=== PATIENT | male | born 1940 | race Caucasian/White ===

== ENCOUNTER 2020-11-20 09:27 | Emergency (ER) | payer OTHER ==
[~2020-11-20] VITALS: Ht 170.2 cm; Wt 68.5 kg
[~2020-11-20 09:27] MED LIST: LISINOPRIL10 MG PO
[2020-11-20] MEDS ORDERED: IBUPROFEN 600 MG TAB PO STA (09:51)
[2020-11-20] MEDS ORDERED: ULTRAM 50MG50 MG PO (12:11)
== END 2020-11-20 12:22 | disposition home or self-care (01) ==
LOC: ER 10:29
DX: M25.561 Pain in right knee (principal); W01.0XXA Fall on same level from slipping, tripping and stumbling without subsequent striking against object, initial encounter; Y93.01 Activity, walking, marching and hiking; I10 Essential (primary) hypertension; I25.10 Atherosclerotic heart disease of native coronary artery without angina pectoris; Z95.1 Presence of aortocoronary bypass graft; Z88.0 Allergy status to penicillin
CPT/HCPCS: 99283

== ENCOUNTER 2020-12-01 15:14 | Emergency (ER) | payer OTHER ==
[~2020-12-01] VITALS: Ht 170.2 cm; Wt 68.5 kg
[~2020-12-01 15:14] MED LIST changes: +ULTRAM 50MG50 MG PO
[2020-12-01] MEDS ORDERED: MULTI-VITAMIN1 EACH PO (16:01)
[2020-12-01] MEDS ORDERED: LEVOTHYROXINE100 MC2 (16:01)
[2020-12-01] MEDS ORDERED: GINKGO BILOBA120 MG (16:01)
[2020-12-01] MEDS ORDERED: COQ-10100 MG (16:01)
[2020-12-01] MEDS ORDERED: ASPIRIN EC81 MG PO (16:01)
[2020-12-01] MEDS ORDERED: VITAMIN B-121000 MCG PO (16:01)
[2020-12-01] MEDS ORDERED: APPLE CIDER VI300 MG (16:01)
[2020-12-01] MEDS ORDERED: POTASSIUM CHLO10 ME1 PO (16:01)
[2020-12-01] MEDS ORDERED: ACYCLOVIR200 MG PO (16:01)
[2020-12-01] MEDS ORDERED: MAGOX 400400 MG PO (16:01)
[2020-12-01] MEDS ORDERED: SAW PALMETTO 41 EACH (16:01)
[2020-12-01] MEDS ORDERED: SODIUM CHLORIDE 0.9% 1000ML 1,000 ML IV SCH (16:45)
[2020-12-01] MEDS ORDERED: SODIUM CHLORIDE 0.9% 1000ML 1,000 ML ONE (19:26)
[2020-12-01] MEDS ORDERED: GABAPENTIN100 MG PO (20:56)
[2020-12-01 21:05] VITALS: BP 155/66
== END 2020-12-01 21:05 | disposition home or self-care (01) ==
LOC: FSED 15:42
DX: M79.662 Pain in left lower leg (principal); M79.18 Myalgia, other site; Z91.81 History of falling; R63.0 Anorexia; Z68.23 Body mass index [BMI] 23.0-23.9, adult; B02.9 Zoster without complications; I10 Essential (primary) hypertension; E03.9 Hypothyroidism, unspecified; I25.10 Atherosclerotic heart disease of native coronary artery without angina pectoris; Z95.1 Presence of aortocoronary bypass graft
CPT/HCPCS: 71045; 73700; 93005; 99284; J7030

== ENCOUNTER 2020-12-12 13:39 | Inpatient (IN) | payer OTHER ==
[~2020-12-12] VITALS: Ht 171.4 cm; Wt 63.0 kg
[~2020-12-12 13:39] MED LIST changes: +ACYCLOVIR200 MG PO; +APPLE CIDER VI300 MG; +ASPIRIN EC81 MG PO; +COQ-10100 MG; +GABAPENTIN100 MG PO; +GINKGO BILOBA120 MG; +LEVOTHYROXINE100 MC2; +MAGOX 400400 MG PO; +MULTI-VITAMIN1 EACH PO; +POTASSIUM CHLO10 ME1 PO; +SAW PALMETTO 41 EACH; +VITAMIN B-121000 MCG PO
[2020-12-12] MEDS ORDERED: SODIUM CHLORIDE 0.9% 1000ML 1,000 ML IV SCH (15:45)
[2020-12-12] MEDS ORDERED: ACETAMINOPHEN 325 MG TAB PO PRN (19:45)
[2020-12-12] MEDS ORDERED: TRAMADOL HCL 50 MG TAB PO PRN (19:45)
[2020-12-12] MEDS ORDERED: HYDRALAZINE HCL 20 MG/ML VIAL IV PRN (19:45)
[2020-12-12] MEDS ORDERED: ONDANSETRON HCL INJ 2MG/ML 2ML 2 MG/ML VIAL IV PRN (19:45)
[2020-12-12 20:04] VITALS: BP 142/75
[2020-12-12 20:35] VITALS: BP 142/75
[2020-12-12 20:54] LABS: BASOPHILS # (AUTO) 0.1 (0.0-0.1); BASOPHILS % 0.5 % (0.0-1.0); EOSINOPHILS # (AUTO) 0.2 (0.0-0.4); EOSINOPHILS % 2.1 % (0.0-6.0); HEMATOCRIT 43.7 % (38.2-49.6); HEMOGLOBIN 14.2 g/dL (14.0-18.0); LYMPHOCYTES # (AUTO) 2.3 (1.0-3.2); LYMPHOCYTES % 24.9 % (18.0-39.1); MEAN CORPUSCULAR HEMOGLOBIN 31.3 pg (28-32); MEAN CORPUSCULAR HGB CONC 32.5 g/dL (31-35); MEAN CORPUSCULAR VOLUME 96.5 fL (81-99); MONOCYTES # (AUTO) 0.9 (0.2-0.8); MONOCYTES % 9.6 % (4.4-11.3); NEUTROPHILS # (AUTO) 5.8 (2.1-6.9); NEUTROPHILS % 62.5 % (38.7-80.0); PLATELET COUNT 277 x10e3/uL (140-360); RED BLOOD COUNT 4.53 x10e6/uL (4.3-5.7); RED CELL DISTRIBUTION WIDTH 12.8 % (11.7-14.4)
[2020-12-12 21:05] LABS: INR 1.02; PROTHROMBIN TIME 13.6 seconds (11.9-14.5)
[2020-12-12 21:06] LABS: PARTIAL THROMBOPLASTIN TIME 29.7 seconds (23.8-35.5)
[2020-12-12 21:13] LABS: ANION GAP 16.5 mmol/L (8-16); CALCIUM 9.9 mg/dL (8.4-10.2); CREATININE, SERUM 1.18 mg/dL (0.72-1.25); POTASSIUM 4.5 mmol/L (3.5-5.1)
[2020-12-13] VITALS (8 sets, daily range): BP systolic 110–164; BP diastolic 68–88
[2020-12-13] MEDS: SODIUM CHLORIDE 0.9% 1000ML 1,000 ML IV SCH ×4 (00:13→20:40)
[2020-12-13] MEDS: FAMOTIDINE 20 MG TAB PO SCH ×2 (07:30→16:57)
[2020-12-13] MEDS ORDERED: ACYCLOVIR 200 MG CAP PO SCH (09:00)
[2020-12-13] MEDS: MAGNESIUM OXIDE 400 MG TAB PO SCH ×2 (09:00→16:57)
[2020-12-13] MEDS ORDERED: LISINOPRIL 10 MG TAB PO SCH (09:00)
[2020-12-13] MEDS ORDERED: LIDOCAINE HCL 1% LOCAL INJ 20 ML VIAL ONE (10:14)
[2020-12-13] MEDS ORDERED: LIDOCAINE 1% W/EPINEPHRINE 20 ML VIAL ONE (10:15)
[2020-12-13] MEDS ORDERED: ONDANSETRON HCL INJ 2MG/ML 2ML 2 MG/ML VIAL IV PRN (10:30)
[2020-12-13] MEDS ORDERED: DIPHENHYDRAMINE HCL INJ 50 MG/ML VIAL IV PRN (10:30)
[2020-12-13] MEDS ORDERED: TRAMADOL/APAP 37.5MG-325MG TAB PO PRN (10:30)
[2020-12-13] MEDS: Cefazolin 1 GM in SODIUM CHLORIDE 0.9% 50ML 50 ML IV SCH ×2 (13:29→21:24)
[2020-12-13] MEDS ORDERED: DEXAMETHASONE SOD PHOS INJ 4 MG/ML VIAL ONE (13:45)
[2020-12-13] MEDS ORDERED: ONDANSETRON HCL INJ 2MG/ML 2ML 2 MG/ML VIAL ONE (13:45)
[2020-12-13] MEDS ORDERED: POVIDONE IODINE 0.05% 0.05 % ML PO ONE (13:45)
[2020-12-13] MEDS ORDERED: SEVOFLURANE INHAL SOLN 250 ML PEN BTL ONE (13:45)
[2020-12-13] MEDS ORDERED: LIDOCAINE HCL 2% LOCAL INJ 5 ML SDV VIAL INJ ONE (13:45)
[2020-12-13] MEDS ORDERED: PROPOFOL IV EMULSION 10 MG/ML 20 ML VIAL ONE (13:45)
[2020-12-13] MEDS ORDERED: EPHEDRINE SULFATE INJ 50 MG/ML VIAL ONE (13:45)
[2020-12-13] MEDS ORDERED: PROPRANOLOL HCL40 MG PO (17:00)
[2020-12-14 00:20] VITALS: BP 129/80
[2020-12-14] MEDS ORDERED: ZIPRASIDONE 20 MG VIAL IM ONE (04:15)
[2020-12-14] MEDS ORDERED: ZIPRASIDONE 20 MG VIAL IM STA (04:15)
[2020-12-14] MEDS: SODIUM CHLORIDE 0.9% 1000ML 1,000 ML IV SCH (05:14)
[2020-12-14] MEDS: Cefazolin 1 GM in SODIUM CHLORIDE 0.9% 50ML 50 ML IV SCH (05:14)
[2020-12-14 05:24] LABS: HEMATOCRIT 38.2 % (38.2-49.6); HEMOGLOBIN 12.6 g/dL (14.0-18.0)
[2020-12-14 06:02] VITALS: BP 99/65
[2020-12-14] MEDS ORDERED: RIVAROXABAN 10 MG TABLET PO SCH (08:00)
[2020-12-14 08:06] VITALS: BP 105/64
[2020-12-14] MEDS ORDERED: ONDANSETRON HCL 4 MG ORAL DISINTEGRATING TAB PO PRN (08:45)
[2020-12-14] MEDS ORDERED: ZIPRASIDONE 20 MG VIAL IM PRN (08:45)
[2020-12-14] MEDS ORDERED: PROPRANOLOL HCL 60 MG ER CAP PO SCH (09:00)
[2020-12-14] MEDS ORDERED: SENNOSIDES 8.6 MG TAB PO SCH (09:00)
[2020-12-14] MEDS: FAMOTIDINE 20 MG TAB PO SCH (09:34)
[2020-12-14] MEDS: MAGNESIUM OXIDE 400 MG TAB PO SCH (09:35)
[2020-12-14 12:00] VITALS: BP 109/65
[2020-12-14] MEDS ORDERED: QUETIAPINE FUMARATE 25 MG TAB PO SCH (14:00)
== END 2020-12-14 15:47 | DRG 481 ==
LOC: MED/SURG 13:39
PROVIDERS: ADMIT Internal Medicine; ATTEND Internal Medicine
PROC: 0QS634Z Reposition Right Upper Femur with Internal Fixation Device, Percutaneous Approach (ICD-10-PCS; principal; 2020-12-13 08:30)
DX: S72.001A Fracture of unspecified part of neck of right femur, initial encounter for closed fracture (principal); F23 Brief psychotic disorder; F03.90 Unspecified dementia, unspecified severity, without behavioral disturbance, psychotic disturbance, mood disturbance, and anxiety; Z91.81 History of falling; I10 Essential (primary) hypertension; E03.9 Hypothyroidism, unspecified; I25.10 Atherosclerotic heart disease of native coronary artery without angina pectoris; Z95.1 Presence of aortocoronary bypass graft; E78.5 Hyperlipidemia, unspecified; Z20.822 Contact with and (suspected) exposure to COVID-19; Z88.5 Allergy status to narcotic agent; Z88.0 Allergy status to penicillin
CPT/HCPCS: 36415; 71045; 72170; 76000; 80048; 85014; 85018; 85025; 85610; 85730; 97139; C1713; J0690; J1100; J1200; J2001; J2405; J3486; J7030; J7050; U0002

== ENCOUNTER → 2022-10-01 | Day surgery (SDC) | payer MEDICARE, OTHER ==
[2022-09-30 13:29] LABS: BASOPHILS # (AUTO) 0.1 (0.0-0.1); EOSINOPHILS # (AUTO) 0.3 (0.0-0.4); EOSINOPHILS % 3.1 % (0.0-6.0); HEMATOCRIT 40.8 % (38.2-49.6); HEMOGLOBIN 13.6 g/dL (14.0-18.0); LYMPHOCYTES # (AUTO) 2.2 (1.0-3.2); LYMPHOCYTES % 25.5 % (18.0-39.1); MEAN CORPUSCULAR HEMOGLOBIN 32.2 pg (28-32); MEAN CORPUSCULAR HGB CONC 33.3 g/dL (31-35); MEAN CORPUSCULAR VOLUME 96.5 fL (81-99); MONOCYTES # (AUTO) 0.7 (0.2-0.8); MONOCYTES % 8.7 % (4.4-11.3); NEUTROPHILS # (AUTO) 5.2 (2.1-6.9); NEUTROPHILS % 61.3 % (38.7-80.0); PLATELET COUNT 183 x10e3/uL (140-360); RED BLOOD COUNT 4.23 x10e6/uL (4.3-5.7); RED CELL DISTRIBUTION WIDTH 12.8 % (11.7-14.4)
[~2022-10-01] MED LIST changes: +FENTANYL CITRATE/PF 100MCG/2 ML INJ ONE; +LACTATED RINGER'S 1,000 ML ONE; +MIDAZOLAM HCL 2 MG/2 ML VIAL ONE; +NAMENDA10 MG PO; +OR PHACO EYE KIT ONE; +PREOP PHACO EYE KIT ONE; +PROPRANOLOL HCL40 MG PO
[2022-10-01 09:10] VITALS: BP 160/64; PULSE 58; RESP 16; O2SAT 98
== END | disposition home or self-care (01) ==
LOC: OR 06:54
PROVIDERS: ATTEND Ophthalmology
DX: H25.11 Age-related nuclear cataract, right eye (principal); G47.33 Obstructive sleep apnea (adult) (pediatric); I10 Essential (primary) hypertension; I25.10 Atherosclerotic heart disease of native coronary artery without angina pectoris; E03.9 Hypothyroidism, unspecified; Z88.6 Allergy status to analgesic agent; Z88.0 Allergy status to penicillin; Z01.810 Encounter for preprocedural cardiovascular examination; Z01.812 Encounter for preprocedural laboratory examination; Z79.82 Long term (current) use of aspirin; Z79.899 Other long term (current) drug therapy
CPT/HCPCS: 36415; 66984; 85025; 93005; J2250; J3010; J7121; V2632

== ENCOUNTER 2023-11-12 09:18 | Inpatient (IN) | payer MEDICARE ==
[2023-11-12] VITALS (7 sets, daily range): BP systolic 118–128; BP diastolic 58–67; PULSE 62–72; RESP 16–18; TEMP 98–98.9; O2SAT 94–98
[~2023-11-12] VITALS: Ht 160 cm; Wt 58.5 kg
[~2023-11-12 09:18] MED LIST changes: -APPLE CIDER VI300 MG; +APPLE CIDER VI300 MG PO; -COQ-10100 MG; +COQ-10100 MG PO; -FENTANYL CITRATE/PF 100MCG/2 ML INJ ONE; -LACTATED RINGER'S 1,000 ML ONE; -MIDAZOLAM HCL 2 MG/2 ML VIAL ONE; -OR PHACO EYE KIT ONE; -PREOP PHACO EYE KIT ONE
[2023-11-12] MEDS ORDERED: SAW PALMETTO450 MG (10:35)
[2023-11-12] MEDS ORDERED: QUETIAPINE FUM100 MG PO (10:35)
[2023-11-12] MEDS ORDERED: POTASSIUM CITR10 MEQ PO (10:35)
[2023-11-12] MEDS ORDERED: FAMOTIDINE20 MG PO (10:35)
[2023-11-12] MEDS ORDERED: RIVASTIGMINE1.5 MG PO (10:35)
[2023-11-12] MEDS ORDERED: MULTIVITAMIN1 EACH (10:35)
[2023-11-12] MEDS ORDERED: VITAMIN C1000 MG PO (10:35)
[2023-11-12] MEDS ORDERED: VITAMIN D325 MCG (10:35)
[2023-11-12] MEDS ORDERED: IOPAMIDOL 370 MG/ML 100 ML INFUS..BTL INJ ONE (10:56)
[2023-11-12] MEDS: SODIUM CHLORIDE 0.9% 1000ML 1,000 ML IV STA (11:11)
[2023-11-12] MEDS ORDERED: ONDANSETRON HCL INJ 2MG/ML 2ML 2 MG/ML VIAL IV PRN (13:45)
[2023-11-12] MEDS ORDERED: Morphine 2mg Syringe 2 MG/ML SYR IV PRN ×2 (13:45→16:00)
[2023-11-12] MEDS: CEFEPIME 2 GM in SODIUM CHLORIDE 0.9% 100 ML IV SCH (14:00)
[2023-11-12] MEDS ORDERED: Morphine 4mg INJECTION 4 MG/ML INJ IV PRN (14:00)
[2023-11-12] MEDS: METRONIDAZOLE 500MG/NS 100ML 100 ML IV SCH (14:15)
[2023-11-12] MEDS: SODIUM CHLORIDE 0.9% 1000ML 1,000 ML IV SCH (14:26)
[2023-11-13] VITALS (8 sets, daily range): BP systolic 107–134; BP diastolic 53–65; PULSE 60–70; RESP 16–18; TEMP 98.4–98.8; O2SAT 94–99
[2023-11-13 05:54] LABS: BASOPHILS % 0.1 % (0.0-1.0); EOSINOPHILS % 0.1 % (0.0-6.0); LYMPHOCYTES # (AUTO) 0.7 (1.0-3.2); MEAN CORPUSCULAR HEMOGLOBIN 32.5 pg (28-32); MEAN CORPUSCULAR HGB CONC 32.4 g/dL (31-35); MEAN CORPUSCULAR VOLUME 100.6 fL (81-99); MONOCYTES # (AUTO) 1.1 (0.2-0.8); MONOCYTES % 8.1 % (4.4-11.3); NEUTROPHILS # (AUTO) 11.8 (2.1-6.9); PLATELET COUNT 130 x10e3/uL (140-360); RED BLOOD COUNT 3.38 x10e6/uL (4.3-5.7); WHITE BLOOD COUNT 13.73 x10e3/uL (4.8-10.8)
[2023-11-13 06:08] LABS: ALBUMIN 2.9 g/dL (3.5-5.0); ALBUMIN/GLOBULIN RATIO 1.2 (0.8-2.0); BILIRUBIN,TOTAL 0.6 mg/dL (0.2-1.2); CALCIUM 8.1 mg/dL (8.4-10.2); CREATININE, SERUM 0.95 mg/dL (0.72-1.25); POTASSIUM 3.9 mmol/L (3.5-5.1); TOTAL PROTEIN 5.4 g/dL (6.5-8.1)
[2023-11-13 08:20] LABS: ANION GAP 14.9 mmol/L (8-16)
[2023-11-13] MEDS ORDERED: GADOBENATE DIMEGLUMINE 1 ML IV ONE (10:37)
[2023-11-13] MEDS ORDERED: DOCUSATE SODIUM 100 MG CAP PO PRN (12:30)
[2023-11-13] MEDS ORDERED: MELATONIN 3 MG TAB PO PRN (12:30)
[2023-11-13] MEDS ORDERED: ALBUTEROL/IPRATROPIUM 3 ML NEB NEB PRN (12:30)
[2023-11-13] MEDS ORDERED: METOPROLOL TARTRATE INJ 1 MG/ML VIAL IV PRN (12:30)
[2023-11-13] MEDS: FAMOTIDINE 20 MG/2 ML VIAL IV SCH (16:37)
[2023-11-14] VITALS (8 sets, daily range): BP systolic 116–139; BP diastolic 54–70; PULSE 62–69; RESP 16–18; TEMP 97.6–99.2; O2SAT 94–100
[2023-11-14 06:13] LABS: POTASSIUM 3.4 mmol/L (3.5-5.1)
[2023-11-14 06:14] LABS: CALCIUM 8.3 mg/dL (8.4-10.2); CREATININE, SERUM 0.85 mg/dL (0.72-1.25)
[2023-11-14 06:31] LABS: HEMATOCRIT 30.3 % (38.2-49.6); MEAN CORPUSCULAR HEMOGLOBIN 32.7 pg (28-32); RED BLOOD COUNT 3.06 x10e6/uL (4.3-5.7); RED CELL DISTRIBUTION WIDTH 12.9 % (11.7-14.4); WHITE BLOOD COUNT 8.82 x10e3/uL (4.8-10.8)
[2023-11-14 06:32] LABS: BASOPHILS % 0.1 % (0.0-1.0); EOSINOPHILS % 0.3 % (0.0-6.0); LYMPHOCYTES # (AUTO) 0.8 (1.0-3.2); LYMPHOCYTES % 8.7 % (18.0-39.1); MONOCYTES # (AUTO) 0.9 (0.2-0.8); MONOCYTES % 9.8 % (4.4-11.3); NEUTROPHILS # (AUTO) 7.1 (2.1-6.9); NEUTROPHILS % 80.5 % (38.7-80.0); PLATELET COUNT 133 x10e3/uL (140-360)
[2023-11-14 06:41] LABS: ANION GAP 16.4 mmol/L (8-16)
[2023-11-14] MEDS: SODIUM BICARBONATE 8.4% VIAL 100 ML in SODIUM CHLORIDE 0.45% 1,000 ML IV SCH (09:30)
[2023-11-14] MEDS ORDERED: ONDANSETRON HCL 4 MG ORAL DISINTEGRATING TAB PO PRN (10:45)
[2023-11-15] VITALS (10 sets, daily range): BP systolic 123–139; BP diastolic 55–64; PULSE 60–70; RESP 17–19; TEMP 97.6–99; O2SAT 95–97
[2023-11-15 04:14] LABS: FOLATE 19.1 ng/mL (7.0-15.4)
[2023-11-15 04:26] LABS: % IRON SATURATION 12 % (15-50); IRON 19 ug/dL (65-175); TOTAL IRON BINDING CAPACITY 157 ug/dL (261-478); TRANSFERRIN 112 mg/dL (174-364)
[2023-11-15 05:40] LABS: BASOPHILS % 0.2 % (0.0-1.0); EOSINOPHILS # (AUTO) 0.2 (0.0-0.4); EOSINOPHILS % 1.6 % (0.0-6.0); HEMATOCRIT 30.9 % (38.2-49.6); HEMOGLOBIN 10.2 g/dL (14.0-18.0); LYMPHOCYTES % 10.4 % (18.0-39.1); MEAN CORPUSCULAR HEMOGLOBIN 32.4 pg (28-32); MEAN CORPUSCULAR VOLUME 98.1 fL (81-99); NEUTROPHILS # (AUTO) 7.3 (2.1-6.9); NEUTROPHILS % 76.8 % (38.7-80.0); PLATELET COUNT 143 x10e3/uL (140-360); RED BLOOD COUNT 3.15 x10e6/uL (4.3-5.7); RED CELL DISTRIBUTION WIDTH 12.8 % (11.7-14.4); WHITE BLOOD COUNT 9.56 x10e3/uL (4.8-10.8)
[2023-11-15 06:09] LABS: ANION GAP 12.1 mmol/L (8-16); CALCIUM 7.7 mg/dL (8.4-10.2)
[2023-11-15 06:12] LABS: POTASSIUM 3.1 mmol/L (3.5-5.1)
[2023-11-15 06:26] LABS: CREATININE, SERUM 0.79 mg/dL (0.72-1.25)
[2023-11-16 07:16] VITALS: BP 139/60; PULSE 69; RESP 18; TEMP 98.3; O2SAT 97
[2023-11-16 07:39] VITALS: PULSE 65; RESP 18; O2SAT 96
[2023-11-16 09:16] VITALS: BP 133/60; PULSE 63; RESP 20; TEMP 98.6; O2SAT 95
[2023-11-16] MEDS: IRON SUCROSE 100 MG in SODIUM CHLORIDE 0.9% 100 ML IV SCH (09:47)
[2023-11-16] MEDS ORDERED: BUPIVACAINE HCL 0.5% INJ 30 ML VIAL INJ ONE (12:01)
[2023-11-16] MEDS ORDERED: SUGAMMADEX SODIUM 200 MG/2 ML VIAL IV ONE ×2 (13:02→13:11)
[2023-11-16] MEDS ORDERED: Morphine 2mg Syringe 2 MG/ML SYR IV PRN (13:15)
[2023-11-16] MEDS: LEVOFLOXACIN 500MG/D5W 100ML 100 ML IV ONE (13:21)
[2023-11-16] MEDS ORDERED: FENTANYL CITRATE/PF 100MCG/2 ML INJ ONE (13:36)
[2023-11-16] MEDS ORDERED: Morphine 10mg syringe 10 MG/ML INJ ONE (13:36)
[2023-11-16] MEDS: SODIUM BICARBONATE 8.4% VIAL 100 ML in SODIUM CHLORIDE 0.45% 1,000 ML IV SCH (16:19)
[2023-11-16 17:15] VITALS: BP 171/74; PULSE 60; RESP 19; TEMP 97.5; O2SAT 96
[2023-11-16] MEDS ORDERED: SUCCINYLCHOLINE CHLORIDE 20 MG/ML 10ML VIAL ONE (18:11)
[2023-11-16] MEDS ORDERED: LIDOCAINE HCL 2% LOCAL INJ 5 ML SDV VIAL INJ ONE (18:11)
[2023-11-16] MEDS ORDERED: ONDANSETRON HCL INJ 2MG/ML 2ML 2 MG/ML VIAL ONE (18:11)
[2023-11-16] MEDS ORDERED: ROCURONIUM BROMIDE 10 MG/ML 5ML VIAL IV ONE (18:11)
[2023-11-16] MEDS ORDERED: SEVOFLURANE INHAL SOLN 250 ML PEN BTL ONE (18:11)
[2023-11-16] MEDS ORDERED: KETOROLAC TROMETHAMINE 30 MG/ML VIAL ONE (18:11)
[2023-11-16] MEDS ORDERED: DEXAMETHASONE SOD PHOS INJ 4 MG/ML SDV ONE (18:11)
[2023-11-16] MEDS ORDERED: METOCLOPRAMIDE HCL 10 MG/2ML VIAL ONE (18:11)
[2023-11-16] MEDS ORDERED: PROPOFOL IV EMULSION 10 MG/ML 20 ML VIAL ONE (18:11)
[2023-11-16 20:00] VITALS: BP 132/73; PULSE 63; RESP 17; TEMP 97.8; O2SAT 96
[2023-11-16 20:43] VITALS: PULSE 71; RESP 18; O2SAT 96
[2023-11-17] VITALS (11 sets, daily range): BP systolic 96–166; BP diastolic 55–99; PULSE 59–94; RESP 16–20; TEMP 97.3–97.9; O2SAT 95–100
[2023-11-17] MEDS ORDERED: ZOLPIDEM TARTRATE 5 MG TAB PO PRN (21:00)
[2023-11-17 22:12] LABS: ANION GAP 13.3 mmol/L (8-16); CALCIUM 8.4 mg/dL (8.4-10.2); CREATININE, SERUM 0.92 mg/dL (0.72-1.25)
[2023-11-17 22:21] LABS: POTASSIUM 3.3 mmol/L (3.5-5.1)
[2023-11-18] VITALS: BP 145/67; PULSE 58; RESP 17; TEMP 97.6; O2SAT 96
[2023-11-18 04:00] VITALS: BP 132/64; PULSE 59; RESP 17; TEMP 97.8; O2SAT 95
[2023-11-18 08:01] VITALS: BP 146/64; PULSE 63; RESP 18; TEMP 98; O2SAT 97
[2023-11-18] MEDS ORDERED: SENOKOT8.6 MG PO (08:07)
[2023-11-18] MEDS ORDERED: Docusate Sodium PO (08:07)
[2023-11-18] MEDS ORDERED: SODIUM CHLORIDE 0.9% 200 ML ONE (08:37)
[2023-11-18 09:46] VITALS: PULSE 74; RESP 20; O2SAT 95
[2023-11-18 11:29] VITALS: BP 122/57; PULSE 57; RESP 18; TEMP 97.5; O2SAT 96
[2023-11-18] MEDS ORDERED: METRONIDAZOLE 500 MG TAB PO SCH (14:00)
[2023-11-18] MEDS ORDERED: FAMOTIDINE 20 MG TAB PO SCH (16:30)
== END 2023-11-18 11:45 | disposition home or self-care (01) | DRG 417 ==
LOC: FSED 09:33 → ERHOLD 13:39 → MED/SURG2 15:22
PROVIDERS: ADMIT Internal Medicine; ATTEND Internal Medicine
PROC: 0FT44ZZ Resection of Gallbladder, Percutaneous Endoscopic Approach (ICD-10-PCS; principal; 2023-11-16 12:01)
DX: K80.10 Calculus of gallbladder with chronic cholecystitis without obstruction (principal); K85.10 Biliary acute pancreatitis without necrosis or infection; E87.20 Acidosis, unspecified; F03.90 Unspecified dementia, unspecified severity, without behavioral disturbance, psychotic disturbance, mood disturbance, and anxiety; I10 Essential (primary) hypertension; I25.10 Atherosclerotic heart disease of native coronary artery without angina pectoris; E03.9 Hypothyroidism, unspecified; K21.9 Gastro-esophageal reflux disease without esophagitis; I70.90 Unspecified atherosclerosis; N21.0 Calculus in bladder; K59.00 Constipation, unspecified; Z11.52 Encounter for screening for COVID-19; Z79.82 Long term (current) use of aspirin; Z79.890 Hormone replacement therapy; Z95.1 Presence of aortocoronary bypass graft; Z95.5 Presence of coronary angioplasty implant and graft; Z88.0 Allergy status to penicillin; Z88.5 Allergy status to narcotic agent
CPT/HCPCS: 36415; 70450; 71260; 74177; 74183; 80048; 80053; 80076; 81003; 82150; 82248; 82553; 82607; 82746; 83540; 83690; 84466; 84484; 85025; 85045; 86301; 88304; 93005; 94799; 99252; 99284; J0330; J0692; J1100; J1756; J1885; J1956; J2001; J2270; J2405; J2765; J7030; J7050; Q9967

== ENCOUNTER 2024-11-26 15:30 | Emergency (ER) | payer MEDICARE ==
[~2024-11-26] VITALS: Ht 170.2 cm; Wt 54.4 kg
[~2024-11-26 15:30] MED LIST changes: +Docusate Sodium PO; +FAMOTIDINE20 MG PO; +MULTIVITAMIN1 EACH; +POTASSIUM CITR10 MEQ PO; +QUETIAPINE FUM100 MG PO; +RIVASTIGMINE1.5 MG PO; +SAW PALMETTO450 MG; +SENOKOT8.6 MG PO; +VITAMIN C1000 MG PO; +VITAMIN D325 MCG
[2024-11-26 15:36] VITALS: PULSE 67; RESP 16; TEMP 98.8
[2024-11-26 16:32] VITALS: BP 138/61; PULSE 60; RESP 16; TEMP 98.6; O2SAT 100
== END 2024-11-26 16:36 | disposition home or self-care (01) ==
LOC: ER 15:38
DX: F03.90 Unspecified dementia, unspecified severity, without behavioral disturbance, psychotic disturbance, mood disturbance, and anxiety (principal); I10 Essential (primary) hypertension; E03.9 Hypothyroidism, unspecified; I25.10 Atherosclerotic heart disease of native coronary artery without angina pectoris; K21.9 Gastro-esophageal reflux disease without esophagitis; Z95.5 Presence of coronary angioplasty implant and graft
CPT/HCPCS: 99283